=== PATIENT | female | born 1965 | race Caucasian/White ===

== ENCOUNTER → 2018-12-06 | Outpatient (CLI) | payer OTHER ==
--- NOTE | 2018-12-07 08:45 | MM ---
Reason for exam: screening (asymptomatic). History: Patient is postmenopausal. Family history of breast cancer in maternal grandmother at age 70 and breast cancer in maternal aunt at age 70. Took hormonal contraceptives for 13 years. Physical Findings: A clinical breast exam by your physician is recommended on an annual basis and results should be correlated with mammographic findings. MG 3D Screening Mammo W/Cad Bilateral CC and MLO view(s) were taken. No prior studies available for comparison. The breast tissue is heterogeneously dense. This may lower the sensitivity of mammography. Finding: There is a 5 mm equal density (isodense), obscured oval mass in the upper outer quadrant of the right breast and in the upper outer quadrant of the left breast. ASSESSMENT: Incomplete: need additional imaging evaluation, BI-RAD 0 RECOMMENDATION: Special view mammogram of both breasts. If lesion persists on supplemental views, image directed ultrasound is recommended. [facility] will attempt to contact patient to return for supplemental views and ultrasound if indicated.
== END | disposition home or self-care (01) ==
LOC: RADMAMWWP 12:59
PROVIDERS: ATTEND Family Medicine
DX: Z12.31 Encounter for screening mammogram for malignant neoplasm of breast (principal)
CPT/HCPCS: 77063; 77067

== ENCOUNTER → 2018-12-08 | Outpatient (CLI) | payer OTHER ==
--- NOTE | 2018-12-08 11:22 | MM ---
Reason for exam: additional evaluation requested from abnormal screening. Last mammogram was performed less than 1 month ago. History: Patient is postmenopausal. Family history of breast cancer in maternal grandmother at age 70 and breast cancer in maternal aunt at age 70. Took hormonal contraceptives for 13 years. Physical Findings: Nurse did not find any significant physical abnormalities on exam. MG 3D Work Up W/Cad LUIS ARMANDO Bilateral spot compression CC, spot compression MLO, and LM view(s) were taken. Prior study comparison: December 06, 2018, bilateral MG 3d screening mammo w/cad. Finding: There is a 5 mm lobulated mass in the upper outer quadrant of the right breast. These results were verbally communicated with the patient and result sheet given to the patient on 12/08/18. ASSESSMENT: Incomplete: need additional imaging evaluation, BI-RAD 0 RECOMMENDATION: Ultrasound of the right breast.
--- NOTE | 2018-12-08 11:24 | USB ---
Reason for exam: additional evaluation requested from abnormal screening. History: Patient is postmenopausal. Family history of breast cancer in maternal grandmother at age 70 and breast cancer in maternal aunt at age 70. Took hormonal contraceptives for 13 years. US Breast Workup Limited RT Right limited breast ultrasound including focal area of concern, retroareolar and axilla demonstrates no cystic or solid lesion seen. These results were verbally communicated with the patient and result sheet given to the patient on 12/08/18. ASSESSMENT: Probably benign, BI-RAD 3 RECOMMENDATION: Follow-up diagnostic mammogram of the right breast in 6 months.
== END | disposition home or self-care (01) ==
LOC: RADMAMWWP 08:51
PROVIDERS: ATTEND Family Medicine
DX: R92.8 Other abnormal and inconclusive findings on diagnostic imaging of breast (principal)
CPT/HCPCS: 77062; 77066

== ENCOUNTER → 2019-09-01 | Outpatient (CLI) | payer OTHER ==
--- NOTE | 2019-09-02 08:01 | MM ---
Reason for exam: follow-up at short interval from prior study. Last mammogram was performed 9 months ago. History: Patient is postmenopausal. Family history of breast cancer in maternal grandmother at age 70 and breast cancer in maternal aunt at age 70. Took hormonal contraceptives for 13 years. Physical Findings: Nurse did not find any significant physical abnormalities on exam. MG 3D Diag Mammo W/Cad RT CC and MLO view(s) were taken of the right breast. Prior study comparison: December 08, 2018, bilateral MG 3d work up w/cad LUIS ARMANDO. December 06, 2018, bilateral MG 3d screening mammo w/cad. There are scattered fibroglandular densities. No significant new findings when compared with previous films. These results were verbally communicated with the patient and result sheet given to the patient on 09/01/19. ASSESSMENT: Benign, BI-RAD 2 RECOMMENDATION: Return to routine screening mammogram schedule for both breasts. Back on schedule.
== END | disposition home or self-care (01) ==
LOC: RADMAMWWP 12:54
PROVIDERS: ATTEND Family Medicine
DX: R92.8 Other abnormal and inconclusive findings on diagnostic imaging of breast (principal)
CPT/HCPCS: 77061; 77065

== ENCOUNTER → 2022-03-26 | Outpatient (CLI) | payer OTHER ==
--- NOTE | 2022-03-27 19:21 | MM ---
Reason for Exam: Screening (asymptomatic). Last mammogram was performed 3 year(s) and 3 month(s) ago. Patient History: Menarche at age 13. First Full-Term at age 21. Postmenopausal. Patient has history of breast feeding. Patient used Hormonal Contraceptives for 13 years. Maternal grandmother had breast cancer, age 70. Paternal aunt had breast cancer, age 70. Risk Values: Jumana 5 year model risk: 0.9%. NCI Lifetime model risk: 6.6%. Prior Study Comparison: 12/06/2018 Bilateral Screening Mammogram, [facility]. 12/08/2018 Bilateral Diagnostic Mammogram, [facility]. 09/01/2019 Right Diagnostic Mammogram, [facility]. Tissue Density: The breast tissue is heterogeneously dense. This may lower the sensitivity of mammography. Findings: Analyzed By CAD. Dense tissues are present primarily centrally in the breasts. There is no suspicious group of microcalcifications or new suspicious mass in either breast. Overall Assessment: Negative, BI-RAD 1 Management: Screening Mammogram of both breasts in 1 year. 1. Patient should continue monthly self breast exams. 2. A clinical breast exam by your physician is recommended on an annual basis. 3. This exam should not preclude additional follow-up of suspicious palpable abnormalities. Electronically signed and approved by: Giovanni Pruitt M.D. Radiologist
== END | disposition home or self-care (01) ==
LOC: RADMAMWWP 08:03
PROVIDERS: ATTEND Family Medicine
DX: Z12.31 Encounter for screening mammogram for malignant neoplasm of breast (principal)
CPT/HCPCS: 77067

== ENCOUNTER → 2022-06-12 | Outpatient (CLI) | payer OTHER ==
--- NOTE | 2022-06-12 12:06 | NM ---
EXAMINATION TYPE: NM stress cardiolite complete DATE OF EXAM: 06/12/2022 COMPARISON: NONE HISTORY: Abnormal cardiac coronary scoring. Family history of heart attack. History of hypercholester olemia. TECHNIQUE: After the intravenous administration of 9.4 mCi Tc 99m Sestamibi - Rest images obtained 4 5 minutes post injection. The patient exercised using a TAJ protocol and 1 minute prior to peak e xercise was injected with 25.2 mCi Tc 99m Sestamibi - Stress images obtained 15 minutes post injectio n. FINDINGS: Targeted heart rate was achieved during performance of the study. Review of stress and rest SPECT lc ges demonstrates no distinct perfusion abnormality. Gated analysis shows normal wall motion with an estimated left ventricular ejection fraction of 67 %. IMPRESSION: No convincing scintigraphic evidence for reversible ischemia
--- NOTE | 2022-06-12 12:44 | CA ---
Exercise Stress Test Report Name: Guy Justin Exam Date: 06/12/2022 10:12 Exam Location: [facility] Ht (in): 68 Wt (lb): 209 BSA: 2.08 Ordering Phys: Brandy Hayes MD Referring Phys: BRANDY HAYES,, Technologist: Venkatesh Lange Age: 57 Gender: F : 1965 Procedure CPT: Indications: R94.39 abnormal cardiac test ICD-10 Codes: Patient History: Family history of heart disease Medications: Meds past 24 hrs: Pretest Chest Pain: STRESS TEST Tim Protocol Exercise Duration (min:sec): 07:[address] Depressions (mm): 0 Angina Score: 0 Flood Score: 7.52 Resting HR (bpm): 51 Peak HR (bpm): 151 Resting BP (mmHg): 127 / 69 Peak BP (mmHg): 160 / 98 MPHR: 165 Target HR: 140 % MPHR: 92 METS: 9.8 Total Dose: Peak Dose: Atropine: Double Product: 40371 BP Response: Stress Termination: Reached target heart rate Stress Symptoms: Dyspnea Stress Summary: The patient's target heart rate was achieved ECG ANALYSIS Resting ECG: Sinus rhythm. Normal conduction. No arrhythmias. Normal repolarization. Stress ECG: No ECG evidence of ischemia with exercise. CONCLUSIONS Patient falls into low-risk group (DTS >= +5). This associates the patient with an annual CV mortality <= 0.5%. 1. Average exercise tolerance 2. Normal left electrocardiographic response to exercise with no evidence of stress induced ischemia Dr. Elena Perales MD (Electronically Signed) Final Date: 12 June 2022 12:43
== END | disposition home or self-care (01) ==
LOC: RADNMMAIN 08:14
PROVIDERS: ATTEND Family Medicine
DX: R94.39 Abnormal result of other cardiovascular function study (principal); Z82.49 Family history of ischemic heart disease and other diseases of the circulatory system
CPT/HCPCS: 93017; 78452; A9500